=== PATIENT | female | born 1960 | race Caucasian/White ===

== ENCOUNTER → 2016-05-23 | Outpatient (CLI) | payer OTHER ==
--- NOTE | 2016-05-23 09:22 | US ---
EXAMINATION TYPE: US kidneys/renal and bladder DATE OF EXAM: 05/23/2016 8:53 AM COMPARISON: NONE CLINICAL HISTORY: R10.84 ABd Pain. left flank pain EXAM MEASUREMENTS: Right Kidney: 10.6 x 5.1 x 4.2 cm Left Kidney: 10.5 x 4.4 x 4.4 cm Findings: Right Kidney: wnl . Left Kidney: wnl Bladder: Poorly distended, wnl as visualized Bilateral Jets seen There is no evidence for hydronephrosis at this point in time. No nephrolithiasis is seen. No glen s are identified. The urinary bladder is anechoic. Bilateral ureteral jets are seen. IMPRESSION: No significant abnormality identified.
[2016-05-23 09:34] LABS: Appearance,Urine Clear (Clear); Bilirubin,Urine Negative (Negative); Glucose,Urine (UA) Negative (Negative); Ketones,Urine Negative (Negative); Leukocyte Esterase,Urine Negative (Negative); Nitrite,Urine Negative (Negative); Protein,Urine Negative (Negative); Specific Gravity,Urine 1.007 (1.001-1.035); UA Billing (MACRO vs. MICRO) CHEM; Urobilinogen,Urine <2.0 mg/dL (<2.0)
== END | disposition home or self-care (01) ==
LOC: RADUSMAIN 08:25
PROVIDERS: ATTEND Internal Medicine Critical Care Medicine
DX: R10.84 Generalized abdominal pain (principal)
CPT/HCPCS: 76770; 81003; 87086

== ENCOUNTER 2017-05-05 21:44 | Emergency (ER) | payer OTHER ==
[2017-05-05] MEDS ORDERED: KETOROLAC 30 MG/ML 1 ML VIAL IVP STA (21:55)
[2017-05-05 21:56] VITALS: RESP 18
[2017-05-05] MEDS ORDERED: ONDANSETRON 4 MG/2 ML VIAL IVP STA (22:05)
--- NOTE | 2017-05-05 22:23 | ED ---
Chest Pain HPI - General Chief Complaint: Chest Pain Stated Complaint: Chest Pain Time Seen by Provider: 05/05/17 21:47 Source: patient, family, RN notes reviewed Mode of arrival: wheelchair Limitations: no limitations - History of Present Illness Initial Comments: This is a 56-year-old female with no prior history of heart or lung disease who states that after playing tennis tonight she started developing anterior chest pain. Pain was sharp and dull midsternal she did have episodes nausea vomiting 2. No fevers chills or sweats. Of note she just returned from a trip from [place] yesterday. He voices no other complaints she states the pain is fairly severe at about 9/10. The pain does seem to get worse with certain movements and deep breathing. MD Complaint: chest pain - Related Data Home Medications Medication Instructions Recorded Confirmed Nadolol [Nadolol] 20 mg PO QAM 08/18/13 05/05/17 Naproxen Sodium [Aleve] 220 - 440 mg PO Q12HR PRN 08/18/13 05/05/17 hydrOXYzine PAMOATE [HydrOXYzine 50 mg PO DAILY 08/18/13 05/05/17 PAMOATE] Acai 3000mg 3,000 mg PO HS 05/05/17 05/05/17 Aspirin 325 mg PO ONCE PRN 05/05/17 05/05/17 Fluticasone Nasal [place] [Flonase 1 - 2 spray EA NOSTRIL DAILY PRN 05/05/1705/05 Nasal [place]] Nadolol [Corgard] 30 mg PO HS 05/05/17 05/05/17 Ranitidine HCl 150 mg PO DAILY 05/05/17 05/05/17 Previous Rx's Medication Instructions Recorded Ibuprofen 800 mg PO Q6HR PRN #20 tablet 05/06/17 traMADol HCL [Ultram] 50 mg PO Q6HR PRN #12 tab 05/06/17 Allergies Allergy/AdvReac Type Severity Reaction Status Date / Time No Known Allergies Allergy Verified 05/05/17 22:00 Review of Systems ROS Statement: Those systems with pertinent positive or pertinent negative responses have been documented in the HPI. ROS Other: All systems not noted in ROS Statement are negative. EKG Findings - EKG Results: EKG: interpreted by ERMD, WNL, sinus rhythm, normal axis, normal QRS, normal ST/ T, no acute changes (Normal sinus rhythm a 77 NJ interval 146 QRS duration of 90 QT since QTC of 394/[address]-T wave changes.) Past Medical History Past Medical History: Cancer, Respiratory Disorder, Seizure Disorder Additional Past Medical History / Comment(s): hx. 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 2 days ago History of Any Multi-Drug Resistant Organisms: None Reported Additional Past Surgical History / Comment(s): hx. removal fibroid uterine tumor , hx. carpal tunnel release rt hand, sinus surgery Additional Past Anesthesia/Blood Transfusion Reaction / Comment(s): slow to wake up from anesthesia Past Psychological History: No Psychological Hx Reported Smoking Status: Former smoker Past Alcohol Use History: Daily Past Drug Use History: None Reported - Past Family History Mother Additional Family Medical History / Comment(s): mother -heart, lung Father Family Medical History: Cancer Additional Family Medical History / Comment(s): colon General Exam - General Exam Comments Initial Comments: This is a well-developed well-nourished awake alert oriented 3 female Limitations: no limitations General appearance: alert, anxious, in distress Head exam: Present: atraumatic, normocephalic, normal inspection Eye exam: Present: normal appearance, PERRL, EOMI. Absent: scleral icterus, conjunctival injection, periorbital swelling ENT exam: Present: normal exam, mucous membranes moist Neck exam: Present: normal inspection. Absent: tenderness, meningismus, lymphadenopathy Respiratory exam: Present: normal lung sounds bilaterally, chest wall tenderness. Absent: respiratory distress, wheezes, rales, rhonchi, stridor Cardiovascular Exam: Present: regular rate, normal rhythm, normal heart sounds. Absent: systolic murmur, diastolic murmur, rubs, gallop, clicks GI/Abdominal exam: Present: soft, normal bowel sounds. Absent: distended, tenderness, guarding, rebound, rigid Extremities exam: Present: normal inspection, full ROM, normal capillary refill. Absent: tenderness, pedal edema, joint swelling, calf tenderness Back exam: Present: normal inspection Neurological exam: Present: alert, oriented X3, CN II-XII intact Psychiatric exam: Present: normal affect, normal mood Skin exam: Present: warm, dry, intact, normal color. Absent: rash Course Vital Signs 05/05/17 05/05/17 21:45 23:28 Temperature 97.2 F L Pulse Rate 85 75 Respiratory 18 18 Rate Blood Pressure 154/74 118/58 O2 Sat by Pulse 97 95 Oximetry Chest Pain MDM - MDM I did review the imaging and reports no acute findings. Patient is feeling improved his mentation is consistent with musculoskeletal chest pain additionally she does have elevated liver enzymes. Is likely secondary to alcohol consumption. A hepatitis profile will be ordered however. Patient will be discharged pain medication she was cautioned against alcohol and Tylenol use. She is a follow-up with her doctor and return when necessary Disposition Clinical Impression: Chest wall syndrome, Elevated liver enzymes, Costalchondritis Disposition: HOME SELF-CARE Condition: Good Instructions: Costochondritis (ED) Prescriptions: Ibuprofen 800 mg PO Q6HR PRN #20 tablet PRN Reason: Pain traMADol HCL [Ultram] 50 mg PO Q6HR PRN #12 tab PRN Reason: Pain Referrals: Giancarlo Townsend DO [Primary Care Provider] - 1-2 days
[2017-05-05 22:25] LABS: D-Dimer 0.66 mg/L FEU (<0.60)
[2017-05-05 22:29] LABS: INR 1.1 (<1.2); Prothrombin Time 10.6 sec (9.0-12.0)
[2017-05-05 22:31] LABS: ALT 129 U/L (9-52); AST 448 U/L (14-36); Albumin 4.4 g/dL (3.5-5.0); Alkaline Phosphatase 99 U/L (38-126); Amylase 49 U/L (30-110); Anion Gap 10 mmol/L; Blood Urea Nitrogen 14 mg/dL (7-17); Calcium 9.6 mg/dL (8.4-10.2); Carbon Dioxide 28 mmol/L (22-30); Chloride 105 mmol/L (98-107); Glucose 115 mg/dL (74-99); Lipase 160 U/L (23-300); Magnesium 1.7 mg/dL (1.6-2.3); Potassium 4.1 mmol/L (3.5-5.1); Sodium 143 mmol/L (137-145); Total Bilirubin 0.5 mg/dL (0.2-1.3); Total Protein 6.8 g/dL (6.3-8.2)
[2017-05-05 22:40] LABS: Creatine Kinase 61 U/L (30-135)
--- NOTE | 2017-05-05 22:47 | XR ---
EXAMINATION TYPE: XR chest 2V DATE OF EXAM: 05/05/2017 COMPARISON: NONE HISTORY: Chest pain TECHNIQUE: Frontal and lateral views of the chest are obtained. FINDINGS: Heart and mediastinum are normal. Lungs are clear. Diaphragm is normal. Bony thorax appear s normal. IMPRESSION: Chest x-ray appears normal for age.
[2017-05-05 22:48] LABS: Partial Thromboplastin Time 20.6 sec (22.0-30.0)
[2017-05-05 22:53] LABS: Creatine Kinase MB 0.6 ng/mL (0.0-2.4); Troponin I <0.012 ng/mL (0.000-0.034)
[2017-05-05 23:05] LABS: Basophils % (A) 0 %; Eosinophils # (A) 0.1 k/uL (0-0.7); Eosinophils % (A) 1 %; HGB 13.7 gm/dL (11.4-16.0); Lymphocytes # (A) 0.3 k/uL (1.0-4.8); Lymphocytes % (A) 5 %; MCH 32.9 pg (25.0-35.0); MCHC 33.4 g/dL (31.0-37.0); MCV 98.6 fL (80.0-100.0); Mean Platelet Volume 6.8; Monocytes # (A) 0.1 k/uL (0-1.0); Monocytes % (A) 2 %; Neutrophils # (A) 4.7 k/uL (1.3-7.7); Neutrophils % (A) 92 %; Platelet Count 209 k/uL (150-450); RBC 4.16 m/uL (3.80-5.40); RDW 13.3 % (11.5-15.5); WBC 5.2 k/uL (3.8-10.6)
[2017-05-05] MEDS ORDERED: HYDROmorphone 2 MG/ML 1 ML SYRINGE IVP STA (23:08)
[2017-05-05] MEDS ORDERED: RX INFO: IV CONTRAST WAS GIVEN 1 EACH MISC MISCELLANE PRN (23:08)
--- NOTE | 2017-05-05 23:40 | CT ---
EXAMINATION TYPE: CT angio chest DATE OF EXAM: 05/05/2017 11:28 PM COMPARISON: NONE HISTORY: Chest pain. Elevated d-dimer. CT DLP: 135.70 mGycm Automated exposure control for dose reduction was used. CONTRAST: CTA scan of the thorax is performed with IV Contrast, patient injected with 60 mL of Omnipaque 350, p ulmonary embolism protocol. R 3-D post processed images.. FINDINGS: Lungs are clear of infiltrate. There is no pleural effusion. There is no evidence of a pulmonary mass . There is no mediastinal adenopathy. There are no hilar masses. Thoracic aorta appears normal. There is normal contrast opacification of the pulmonary arteries. There are no filling defects. The thorac ic spine is intact. IMPRESSION: NORMAL CT ANGIOGRAM OF THE CHEST. NO EVIDENCE OF PULMONARY EMBOLISM.
[2017-05-06 00:12] VITALS: BP 101/56; PULSE 68; TEMP 99
[2017-05-06 12:03] LABS: Hepatitis A Antibody IgM Non-Reactive (Non-Reactive); Hepatitis B Core IgM Non-Reactive (Non-Reactive)
== END 2017-05-06 00:17 | disposition home or self-care (01) ==
LOC: EC 21:44
DX: M94.0 Chondrocostal junction syndrome [Tietze] (principal); R74.8 Abnormal levels of other serum enzymes; Z87.891 Personal history of nicotine dependence; Z79.899 Other long term (current) drug therapy
CPT/HCPCS: 36415; 93005; 85379; 80053; 80074; 82150; 82550; 82553; 83690; 83735; 84484; 85025; 85610; 85730; 71046; 71275; 99285; 96374; 96375 ×2; J1170; Q9967; J2405; J1885

== ENCOUNTER → 2017-05-08 | Outpatient (CLI) | payer OTHER ==
--- NOTE | 2017-05-08 14:27 | CT ---
EXAMINATION TYPE: CT abdomen pelvis w con DATE OF EXAM: 05/08/2017 COMPARISON: NONE INDICATION: Upper abdominal pain DLP: 399.1 mGycm, Automated exposure control for dose reduction was used. CONTRAST: 100 mL of Omnipaque 300. Study performed with Oral Contrast TECHNIQUE: Axial images were obtained from above the diaphragm to the pubic rami in the axial plane a t 5 mm thick sections. Reconstructed images are reviewed on the computer in the coronal plane. FINDINGS: Limited CT sections are obtained the lung bases. The lung bases are clear. CT ABDOMEN: Liver: Normal Spleen: Normal Pancreas: Normal Adrenal glands: The adrenal glands are normal. Gallbladder: Normal Kidneys: No masses are evident. No hydronephrosis is present. No cysts are present. Delayed images were obtained through the kidneys, which remain unremarkable. Aorta: Vascular calcification is within the aorta. Inferior vena cava: Normal. CT PELVIS: Loops of bowel within the abdomen and pelvis are normal. There are loops of bowel which are incom pletely distended or lack oral contrast limiting their evaluation. Appendix: Normal as visualized. Urinary bladder: Normal. Genitourinary structures: Uterus appears normal. The right ovary is prominent in the posterior pelvis measuring approximately 2.9 cm. Left adnexal region is unremarkable. No free fluid is within the pel vis. Additional evaluation with pelvic ultrasound is recommended. Osseous structures: No suspicious lytic or sclerotic lesions. IMPRESSIONS: 1. Suspected complex cyst like structure right ovary posterior pelvis. Additional evaluation with pe lvic ultrasound is recommended. 2. Abdomen pelvis CT otherwise unremarkable.
[2017-05-08 14:39] LABS: ALT 184 U/L (9-52); AST 92 U/L (14-36); Albumin 3.9 g/dL (3.5-5.0); Alkaline Phosphatase 94 U/L (38-126); Anion Gap 8 mmol/L; Blood Urea Nitrogen 14 mg/dL (7-17); Calcium 9.4 mg/dL (8.4-10.2); Carbon Dioxide 29 mmol/L (22-30); Chloride 100 mmol/L (98-107); Glucose 84 mg/dL (74-99); Sodium 137 mmol/L (137-145); Total Bilirubin 0.4 mg/dL (0.2-1.3); Total Protein 6.4 g/dL (6.3-8.2)
== END | disposition home or self-care (01) ==
LOC: RADCTMAIN 12:13
PROVIDERS: ATTEND Internal Medicine Critical Care Medicine
DX: R10.9 Unspecified abdominal pain (principal)
CPT/HCPCS: 80053; 74177; 36415; Q9967

== ENCOUNTER → 2017-05-12 | Outpatient (CLI) | payer OTHER ==
--- NOTE | 2017-05-13 07:55 | US ---
EXAMINATION TYPE: US pelvis complete transvag DATE OF EXAM: 05/12/2017 COMPARISON: CT abdomen and pelvis May 08, 2017 CLINICAL HISTORY: Abdominal Pain R10.9. Abdominal pain. Ovarian cyst visualized on recent CT exam TECHNIQUE: Transvaginal (TV) and Transabdominal (TA) . Transabdominal sonographic images of the pel vis were acquired. Transvaginal sonographic images were medically necessary to better assess the fol lowing anatomy: bilateral ovaries Date of LMP: December 2016 EXAM MEASUREMENTS: Uterus: 9.5 x 4.8 x 5.4 cm Endometrial Stripe: 0.6 cm Right Ovary: 4.2 x 3.4 x 3.2 cm Left Ovary: unable to visualize 1. Uterus: Anteverted heterogeneous in appearance with Nabothian cysts 2. Endometrium: possible fibroid fundus of uterus vs. slightly heterogeneous, thickened endometrium = 1.2cm 3. Right Ovary: complex area = 3.2 x 3.2 x 2.1cm 4. Left Ovary: Obscured by overlying bowel gas 5. Bilateral Adnexa: anechoic area adjacent to right ovary = 2.5 x 2.6 x 2.4cm. small amount of free fluid right adnexa 6. Posterior cul-de-sac: Free fluid present Corresponding to recent CT there is asymmetrically enlarged right ovary with several cystic lesions i dentified. Majority are lobulated and predominantly anechoic. One has internal echoes. Other possibil ity is large solid and cystic single right ovarian lesion. Either way study is abnormal in postmenopa usal female. Left ovary is not clearly seen on today's study. Left ovary was normal in size on recent CT. Towards end of study there is heterogeneous hyperechoic lesion in the central uterine fundus milton ears to connect to endometrium on image 73. Cannot exclude focal thickening or polyp. Consider furthe r investigation. IMPRESSION: Abnormal study, there are several cystic lesions measuring greater than 1 cm in size in r ight ovary or a more complex solid and cystic right ovarian mass, either way study is abnormal for po stmenopausal female and neoplasm cannot be excluded. Advise gynecology oncology referral and further lab investigation. There is small amount of free fluid in pelvis which is abnormal finding in postmen opausal female. High uterine fundus shows hyperechoic thickening could reflect submucosal fibroid kori moses polyp/endometrial hyperplasia. This could be further investigated with saline infused hysterosono graph study to better delineate.
== END | disposition home or self-care (01) ==
LOC: RADUSWWP 16:11
PROVIDERS: ATTEND Internal Medicine Critical Care Medicine
DX: N83.201 Unspecified ovarian cyst, right side (principal); R93.8 Abnormal findings on diagnostic imaging of other specified body structures; Z78.0 Asymptomatic menopausal state
CPT/HCPCS: 76830; 76856

== ENCOUNTER → 2018-03-02 | Outpatient (CLI) | payer OTHER ==
[2018-03-02 15:00] LABS: Basophils % (A) 0 %; Eosinophils # (A) 0.2 k/uL (0-0.7); Eosinophils % (A) 2 %; Lymphocytes # (A) 1.2 k/uL (1.0-4.8); Lymphocytes % (A) 18 %; MCH 33.7 pg (25.0-35.0); MCHC 33.4 g/dL (31.0-37.0); MCV 100.9 fL (80.0-100.0); Mean Platelet Volume 6.8; Monocytes # (A) 0.4 k/uL (0-1.0); Monocytes % (A) 7 %; Neutrophils # (A) 4.6 k/uL (1.3-7.7); Neutrophils % (A) 69 %; Platelet Count 333 k/uL (150-450); RBC 3.87 m/uL (3.80-5.40); RDW 12.9 % (11.5-15.5); WBC 6.6 k/uL (3.8-10.6)
[2018-03-02 15:16] LABS: ALT 32 U/L (9-52); AST 30 U/L (14-36); Albumin 4.5 g/dL (3.5-5.0); Albumin/Globulin Ratio 1.7; Alkaline Phosphatase 67 U/L (38-126); Amylase 50 U/L (30-110); Anion Gap 8 mmol/L; Blood Urea Nitrogen 17 mg/dL (7-17); Calcium 10.3 mg/dL (8.4-10.2); Carbon Dioxide 29 mmol/L (22-30); Chloride 103 mmol/L (98-107); Globulin 2.7 g/dL; Glucose 95 mg/dL (74-99); Lipase 183 U/L (23-300); Potassium 4.9 mmol/L (3.5-5.1); Sodium 140 mmol/L (137-145); Total Bilirubin 0.4 mg/dL (0.2-1.3); Total Protein 7.2 g/dL (6.3-8.2)
[2018-03-02 15:50] LABS: Erythrocyte Sedimentation Rate 7 mm/hr (0-20)
== END | disposition home or self-care (01) ==
LOC: LABWHC1 14:15
PROVIDERS: ATTEND Internal Medicine Critical Care Medicine
DX: R11.10 Vomiting, unspecified (principal); R25.2 Cramp and spasm; Z85.43 Personal history of malignant neoplasm of ovary
CPT/HCPCS: 36415; 80053; 82150; 83690; 84443; 85025; 85652; 86677

== ENCOUNTER → 2018-03-29 | Outpatient (CLI) | payer OTHER ==
[2018-03-29 14:26] LABS: Basophils % (A) 0 %; Eosinophils # (A) 0.2 k/uL (0-0.7); Eosinophils % (A) 3 %; HCT 37.6 % (34.0-46.0); HGB 12.9 gm/dL (11.4-16.0); Lymphocytes # (A) 1.3 k/uL (1.0-4.8); Lymphocytes % (A) 19 %; MCH 34.3 pg (25.0-35.0); MCHC 34.2 g/dL (31.0-37.0); MCV 100.2 fL (80.0-100.0); Monocytes # (A) 0.4 k/uL (0-1.0); Monocytes % (A) 6 %; Neutrophils % (A) 71 %; Platelet Count 286 k/uL (150-450); RBC 3.75 m/uL (3.80-5.40); RDW 12.8 % (11.5-15.5)
== END | disposition home or self-care (01) ==
LOC: LABWHC1 13:47
PROVIDERS: ATTEND Obstetrics & Gynecology
DX: C54.1 Malignant neoplasm of endometrium (principal); C56.9 Malignant neoplasm of unspecified ovary
CPT/HCPCS: 36415; 85025; 86304

== ENCOUNTER → 2018-07-12 | Outpatient (CLI) | payer OTHER ==
--- NOTE | 2018-07-13 10:15 | MM ---
Reason for exam: screening (asymptomatic). Last mammogram was performed 1 year and 2 months ago. History: Patient is postmenopausal and has history of ovarian cancer at age 56. Family history of breast cancer in grandmother at age 50 and breast cancer in aunt at age 78. Benign excisional biopsy of the left breast, 2013. Physical Findings: A clinical breast exam by your physician is recommended on an annual basis and results should be correlated with mammographic findings. MG 3D Screening Mammo W/Cad Bilateral CC and MLO view(s) were taken. Prior study comparison: May 12, 2017, mammogram, performed at [facility]. The breast tissue is heterogeneously dense. This may lower the sensitivity of mammography. There is chronic nodularity. No significant changes when compared with prior studies. ASSESSMENT: Benign, BI-RAD 2 RECOMMENDATION: Routine screening mammogram of both breasts in 1 year.
== END | disposition home or self-care (01) ==
LOC: RADMAMWWP 09:13
PROVIDERS: ATTEND Internal Medicine Critical Care Medicine
DX: Z12.31 Encounter for screening mammogram for malignant neoplasm of breast (principal)
CPT/HCPCS: 77063; 77067

== ENCOUNTER 2018-07-28 09:16 | Day surgery (SDC) | payer OTHER ==
[2018-07-27 08:15] VITALS: BMI 22.3
[~2018-07-28 09:16] MED LIST: LACTATED RINGERS 1,000 ML IV SCH; LIDOCAINE 1% 20 ML VIAL (10MG/ML) FOR IV START INTRADERMA PRN
[2018-07-28 10:15] VITALS: RESP 16; TEMP 98.3
[2018-07-28] MEDS ORDERED: PROPOFOL 10 MG/ML 20 ML VIAL IV ONE (10:50)
--- NOTE | 2018-07-28 11:13 | P.PCN ---
Date of Procedure: 07/28/18 Procedure(s) Performed: BRIEF HISTORY: Patient is a 58-year-old pleasant white female scheduled for an elective colonoscopy as a part of screening for colon neoplasia. She does have family history of colon cancer diagnosed in her father. PROCEDURE PERFORMED: Colonoscopy. PREOPERATIVE DIAGNOSIS: Screening for colon cancer/family history of colon cancer. IV sedation per Anesthesia. PROCEDURE: After informed consent was obtained, the patient, was brought into the endoscopy unit. IV sedation was administered by Anesthesia under continuous monitoring. Digital rectal examination was normal. Initially the Olympus CF-160 flexible video colonoscope was then inserted in the rectum, gradually advanced into the cecum without any difficulty. Careful examination was performed as the scope was gradually being withdrawn. Ileocecal valve and the appendiceal orifice were visualized and appeared normal. Prep was excellent. Mucosa of the cecum, ascending colon, transverse colon, descending colon, sigmoid colon, and rectum appeared normal. Scattered sigmoid diverticulosis. Retroflexion was performed in the rectum and no lesions were seen. The patient tolerated the procedure well. IMPRESSION: Normal-appearing colon from rectum to cecum with no evidence of colorectal neoplasia Scattered sigmoid diverticulosis. RECOMMENDATIONS: Findings of this examination were discussed with the patient as well as her family. She was advised to have a repeat screening colonoscopy in 5 years because of family history of colon cancer..
[2018-07-28 11:31] VITALS: BP 119/79; PULSE 61
== END 2018-07-28 11:49 | disposition home or self-care (01) ==
LOC: ORWHC2ENDO 09:16
PROVIDERS: ATTEND Internal Medicine Gastroenterology
DX: Z12.11 Encounter for screening for malignant neoplasm of colon (principal); Z80.0 Family history of malignant neoplasm of digestive organs; K57.30 Diverticulosis of large intestine without perforation or abscess without bleeding; Z88.8 Allergy status to other drugs, medicaments and biological substances; K21.9 Gastro-esophageal reflux disease without esophagitis; Z85.43 Personal history of malignant neoplasm of ovary; G62.9 Polyneuropathy, unspecified
CPT/HCPCS: J2704; G0105

== ENCOUNTER → 2018-11-01 | Outpatient (CLI) | payer OTHER ==
--- NOTE | 2018-11-03 07:55 | MR ---
EXAMINATION TYPE: MR cervical spine wo/w con DATE OF EXAM: 11/01/2018 COMPARISON: Prior MRI cervical spine 04/05/2014, facility from prior exam did not furnish previous rep ort. HISTORY: Cervicalgia / Headache / Myalgia TECHNIQUE: Multiplanar, multisequence images of the cervical spine were acquired utilizing 5.5 mL intravenous Ga davist gadolinium contrast. Diffusion weighted imaging was performed. C2-C3: No evidence for degenerative disc disease. No disc bulge/herniation or protrusion. No Canal stenosis. Foramina are patent bilaterally. C3-C4: Uncovertebral joint hypertrophy and facet arthropathy results in foraminal encroachment bilate rally. No evident disc herniation or significant central stenosis. C4-C5: Mild right-sided foraminal encroachment. No definite disc herniation or significant central st enosis. C5-C6: There is a posterior central disc herniation which has developed in the interval. There is con tact with the anterior cervical cord, mild to moderate central stenosis. No definite foraminal encroa chment. C6-C7: Posterior broad-based disc bulge causes anterior aspect of the thecal sac but only mild centra l stenosis. There is bilateral foraminal encroachment. C7-T1: Mild posterior broad-based disc bulge causes minimal anterior mass effect on the thecal sac. N o significant central stenosis or foraminal encroachment. Cervical segments are intact. There is similar alignment, grade 1 anterolisthesis C3-4, C4-5, C5-6. Loss of disc height and signal is greatest and has progressed at C5-6 and C6-7, there is associated spondylosis. Cervical spinal cord is of normal signal. Craniovertebral junction relationships are wi thin normal limits. There is a spinal curvature present possibly within the thoracic spine, compensa tory curve in the cervical spine. No abnormal enhancement following contrast administration. IMPRESSION: Interval disc herniation C5-6, multilevel foraminal encroachment. Degenerative disc disease. Correlat e for possible scoliosis.
== END | disposition home or self-care (01) ==
LOC: RADMRIMAIN 12:40
PROVIDERS: ATTEND Orthopaedic Surgery Orthopaedic Surgery of the Spine
DX: M48.02 Spinal stenosis, cervical region (principal); M50.122 Cervical disc disorder at C5-C6 level with radiculopathy; M50.10 Cervical disc disorder with radiculopathy, unspecified cervical region
CPT/HCPCS: 72156; A9585

== ENCOUNTER 2018-12-17 11:00 | Day surgery (SDC) | payer OTHER ==
[2018-12-15 15:43] VITALS: BMI 21.9
[~2018-12-17 11:00] MED LIST changes: +DEXAMETHASONE SOD PHOSPHATE 10 MG/ML 1 ML VIAL IV ONE; +HYDROmorphone 0.5 MG/0.5 ML SYRINGE IVP PRN; -LIDOCAINE 1% 20 ML VIAL (10MG/ML) FOR IV START INTRADERMA PRN; +MIDAZOLAM 2 MG/2 ML VIAL IV PRN; +ONDANSETRON 4 MG/2 ML VIAL IVP ONE; +Pre Op ABX Message 1 EACH MISC MISCELLANE ONE; +SCOPOLAMINE 1.5MG/72HR PATCH TRANSDERM ONE
[2018-12-17 11:42] VITALS: TEMP 98
[2018-12-17] MEDS ORDERED: LIDOCAINE 1% 20 ML VIAL (10MG/ML) FOR IV START INTRADERMA ONE (11:42)
[2018-12-17] MEDS ORDERED: PROPOFOL 10 MG/ML 20 ML VIAL IV ONE (12:39)
[2018-12-17] MEDS ORDERED: ePHEDrine SULFATE/0.9% NACL/PF 50 MG/5 ML SYRINGE IV ONE (12:39)
[2018-12-17] MEDS ORDERED: fentaNYL (PF) 50 MCG/ML 2 ML AMP ONE (12:39)
[2018-12-17] MEDS ORDERED: MIDAZOLAM 2 MG/2 ML VIAL ONE (12:39)
[2018-12-17] MEDS ORDERED: LIDOCAINE 1%-EPI 1:100,000 30 ML VIAL SQ ONE (12:55)
[2018-12-17] MEDS ORDERED: BUPIVACAINE (PF) 0.5% 30 ML VIAL SQ ONE ×3 (13:06→13:39)
[2018-12-17 14:03] VITALS: RESP 16
--- NOTE | 2018-12-17 14:20 | P.OP ---
Date of Procedure: 12/17/18 Preoperative Diagnosis: 1. Left carpal tunnel syndrome 2. Left ring trigger finger Postoperative Diagnosis: 1. Left carpal tunnel syndrome 2. Left ring trigger finger Procedure(s) Performed: 1. Left endoscopic carpal tunnel release 2. Release of left ring trigger finger Anesthesia: MAC, local Surgeon: Rodriguez Ramos Estimated Blood Loss (ml): 1 Condition: stable Disposition: PACU Indications for Procedure: The patient is a pleasant 58-year-old female who was diagnosed with left carpal tunnel syndrome and a trigger finger of her left ring finger. Treatment options (and associated risks and benefits) were discussed in the office. The patient elected to proceed with surgical release of both. In preop, the patient denied any additional questions or concerns. Consent forms were signed. The operative sites were confirmed and marked. Description of Procedure: The patient was positioned supine with the operative limb on an arm board. A tourniquet was placed on the operative arm. Anesthesia was administered uneventfully. A time-out was performed, confirming patient identifiers, the operative side, sites and the procedures to be performed: all team members expressed agreement. Using aseptic technique, local anesthetic was injected into the subcutaneous tissues around the planned incisions. The left upper extremity was then prepped and draped in standard, sterile fashion. The limb was exsanguinated with an Esmarch and the tourniquet was inflated. The ring finger was approached first. Loupe magnification was used throughout the case for optimum visualization. A longitudinal incision was marked over the A1 sandy. The skin was sharply incised and blunt, spreading dissection proceeded down to the flexor sheath, taking care to protect the adjacent neurovascular bundles. The subcutaneous tissue was noted to be moderately dense and thickened. The A1 sandy was identified and was sharply incised longitudinally. The FDS and FDP tendons were elevated out of the wound with Ragnell retractors: a subtle, palpable release of adhesions was noted in the palm and full passive flexion of the ring finger was achieved. The tendons were released and allowed to retract back to their normal anatomic positions. Passive motion of the digit demonstrated smooth tendon gliding without appreciable catching, triggering or focal restriction. Attention was then turned to the carpal tunnel. A 1.5 cm transverse incision was marked just proximal to the wrist flexion crease, in line with the radial border of the ring finger. The skin was sharply incised and the subcutaneous tissues were bluntly spread. The volar carpal fascia was identified and sharply incised. The median nerve was identified below and had a flattened, dusky appearance consistent with chronic compression. Attempts to insert a smooth elevator were met with resistance and traction against the nerve. The volar carpal fascia was further released distally under direct visualization. A Geneva elevator was used to gently release adhesions over the nerve. The synovial elevator was again inserted and passed smoothly into the carpal tunnel without traction or tension on the nerve. This was used to gently release remaining adhesions on the underside of the transverse carpal ligament. The washboard effect was palpable. A dilator was inserted to sound and enlarge the carpal tunnel. The hamate hook was palpable ulnarly. The carpal tunnel was very tight and the small side-specific guide and camera were inserted. The transverse carpal ligament was clearly visualized above. The distal edge of the ligament was identified and palpated with a probe. A rasp was used to clear the remaining synovial adhesions. The endoscopic blade was inserted and the distal half of the ligament was sharply incised. Residual distal transverse fibers were released and then the proximal portion of the ligament was divided. Wide release of ligament was visually confirmed. The camera was removed. The volar carpal fascia proximal and distal to the incision was released with scissors under direct visualization. The nerve had a flattened, hourglass appearance at the level of the incision with thick perineural adhesions causing persistent compression on the nerve. A limited neurolysis was performed, which improved the appearance and mobility of the nerve. The tourniquet was released after 33 minutes at 250 mmHg. Excellent hemostasis was obtained with pressure. The wounds were thoroughly irrigated with normal saline. The incisions were closed with interrupted 4-0 Nylon sutures. Additional local anesthetic with epinephrine was injected for adjunctive hemostasis and postoperative pain control. A soft, sterile dressing was applied. All sponge, needle and instrument counts were correct at the end of the case. The patient tolerated the procedure well and was transferred to recovery in stable condition.
[2018-12-17 14:48] VITALS: PULSE 51
[2018-12-17 15:09] VITALS: BP 133/61
== END 2018-12-17 15:30 | disposition home or self-care (01) ==
LOC: OR 11:00
PROVIDERS: ATTEND Orthopaedic Surgery
DX: G56.02 Carpal tunnel syndrome, left upper limb (principal); M65.342 Trigger finger, left ring finger; M65.341 Trigger finger, right ring finger; G43.909 Migraine, unspecified, not intractable, without status migrainosus; G40.909 Epilepsy, unspecified, not intractable, without status epilepticus; G62.9 Polyneuropathy, unspecified; Z79.1 Long term (current) use of non-steroidal anti-inflammatories (NSAID); Z79.899 Other long term (current) drug therapy; Z97.3 Presence of spectacles and contact lenses; Z85.43 Personal history of malignant neoplasm of ovary; Z90.710 Acquired absence of both cervix and uterus; Z79.82 Long term (current) use of aspirin; Z90.722 Acquired absence of ovaries, bilateral; Z90.79 Acquired absence of other genital organ(s); Z98.890 Other specified postprocedural states; Z82.49 Family history of ischemic heart disease and other diseases of the circulatory system
CPT/HCPCS: 26055; 29848; 93005; J2250; J1100; J2405; J3010; J2704

== ENCOUNTER → 2020-06-04 | Outpatient (CLI) | payer OTHER ==
[2020-06-04 14:57] LABS: Basophils # (A) 0.03 X 10*3/uL (0.00-0.10); Basophils % (A) 0.5 %; Eosinophils # (A) 0.18 X 10*3/uL (0.04-0.35); Eosinophils % (A) 2.8 %; HCT 37.7 % (37.2-46.3); HGB 12.5 g/dL (12.0-15.0); Lymphocytes # (A) 1.38 X 10*3/uL (0.90-5.00); Lymphocytes % (A) 21.3 %; MCH 33.3 pg (27.0-32.0); MCHC 33.2 g/dL (32.0-37.0); MCV 100.5 fL (80.0-97.0); Mean Platelet Volume 10.1 fL (9.5-12.2); Monocytes # (A) 0.65 X 10*3/uL (0.20-1.00); Neutrophils # (A) 4.22 X 10*3/uL (1.80-7.70); Neutrophils % (A) 65.2 %; Platelet Count 284 X 10*3/uL (140-440); RBC 3.75 X 10*6/uL (4.10-5.20); RDW 12.6 % (11.5-14.5); WBC 6.47 X 10*3/uL (4.50-10.00)
[2020-06-04 15:37] LABS: ALT 13 U/L (8-44); AST 21 U/L (13-35); African American GFR (CKD) 109.1 (60.0-200.0); Alkaline Phosphatase 70 U/L (41-126); BUN/Creat Ratio 24.29 Ratio (12.00-20.00); Calcium 9.6 mg/dL (8.7-10.3); Carbon Dioxide 28.3 mmol/L (21.6-31.8); Chloride 106 mmol/L (96-109); Chol/HDL Ratio 2.27; Cholesterol 188 mg/dL (0-200); Glucose 93 mg/dL (70-110); Non-African American GFR(CKD) 94.2 (60.0-200.0); Potassium 4.5 mmol/L (3.5-5.5); Sodium 141 mmol/L (135-145); Total Bilirubin 0.4 mg/dL (0.2-1.2); Total Protein 6.4 g/dL (6.2-8.2); Triglycerides <50.0 mg/dL (0.0-149.0)
== END | disposition home or self-care (01) ==
LOC: LABWHC1 09:02
PROVIDERS: ATTEND Internal Medicine Critical Care Medicine
DX: Z00.00 Encounter for general adult medical examination without abnormal findings (principal); D07.39 Carcinoma in situ of other female genital organs; J32.9 Chronic sinusitis, unspecified; G43.909 Migraine, unspecified, not intractable, without status migrainosus; N83.299 Other ovarian cyst, unspecified side; G47.00 Insomnia, unspecified
CPT/HCPCS: 36415; 80053; 80061; 82306; 83036; 84439; 84443; 85025

== ENCOUNTER → 2020-08-01 | Outpatient (CLI) | payer OTHER ==
--- NOTE | 2020-08-02 13:47 | MM ---
Reason for exam: screening (asymptomatic). Last mammogram was performed 2 years and 1 month ago. History: Patient is postmenopausal and has history of ovarian cancer at age 56. Family history of breast cancer in grandmother at age 50 and breast cancer in aunt at age 78. Benign excisional biopsy of the left breast, 2013. Physical Findings: A clinical breast exam by your physician is recommended on an annual basis and results should be correlated with mammographic findings. MG 3D Screening Mammo W/Cad Bilateral CC and MLO view(s) were taken. Prior study comparison: July 12, 2018, bilateral MG 3d screening mammo w/cad. May 12, 2017, mammogram, performed at [facility]. The breast tissue is extremely dense which could obscure a lesion on mammography. Benign appearing bilateral calcifications. No significant changes when compared with prior studies. ASSESSMENT: Benign, BI-RAD 2 RECOMMENDATION: Routine screening mammogram of both breasts in 1 year.
== END | disposition home or self-care (01) ==
LOC: RADMAMWWP 16:02
PROVIDERS: ATTEND Obstetrics & Gynecology
DX: Z12.31 Encounter for screening mammogram for malignant neoplasm of breast (principal); Z78.0 Asymptomatic menopausal state; Z80.3 Family history of malignant neoplasm of breast
CPT/HCPCS: 77063; 77067

== ENCOUNTER → 2021-09-26 | Outpatient (CLI) | payer OTHER ==
--- NOTE | 2021-09-27 09:45 | MM ---
Reason for Exam: Screening (asymptomatic). Last mammogram was performed 1 year(s) and 2 month(s) ago. Patient History: Menarche at age 10. First Full-Term at age 26. Left ovary removed at age 57. Right ovary removed at age 57. Hysterectomy at age 57. Postmenopausal. Ovarian cancer, age 57. Previous chemotherapy at age 57. 2013, Benign Excisional Biopsy on the left side. Maternal grandmother had breast cancer, age 50. Maternal aunt had breast cancer, age 78. Risk Values: Shirin 5 year model risk: 2.2%. NCI Lifetime model risk: 9.8%. Prior Study Comparison: 05/12/2017 Screening Mammogram, [facility]. 07/12/2018 Bilateral Screening Mammogram, [facility]. 08/01/2020 Bilateral Screening Mammogram, [facility]. Tissue Density: The breast tissue is extremely dense which could obscure a lesion on mammography. Findings: Analyzed By CAD. There is no suspicious group of microcalcifications or new suspicious mass in either breast. Overall Assessment: Negative, BI-RAD 1 Management: Screening Mammogram of both breasts in 1 year. Some advised bilateral breast ultrasound surveillance in patients with background dense tissue . Electronically signed and approved by: Norberto Aleman M.D.
== END | disposition home or self-care (01) ==
LOC: RADMAMWWP 10:09
PROVIDERS: ATTEND Internal Medicine Critical Care Medicine
DX: Z12.31 Encounter for screening mammogram for malignant neoplasm of breast (principal); Z78.0 Asymptomatic menopausal state; Z80.3 Family history of malignant neoplasm of breast
CPT/HCPCS: 77063; 77067

== ENCOUNTER → 2021-09-30 | Outpatient (CLI) | payer OTHER ==
--- NOTE | 2021-09-30 11:16 | XR ---
EXAMINATION TYPE: XR chest 2V DATE OF EXAM: 09/30/2021 COMPARISON: Chest x-ray and CT chest May 05, 2017. Most recent chest x-ray September 24, 2021 HISTORY: Breast lump. Possible nipple shadow. TECHNIQUE: Frontal and lateral views of the chest are obtained. FINDINGS: Nipple markers correspond to area of nodularity on most recent x-ray less well seen on curr ent study There is no suspicious new focal air space opacity, pleural effusion, or pneumothorax seen. The cardiac silhouette size remains within normal limits. Slight underlying scoliotic curvature. IMPRESSION: As above.
== END | disposition home or self-care (01) ==
LOC: RADXRMAIN 10:22
PROVIDERS: ATTEND Internal Medicine Critical Care Medicine
DX: N63.0 Unspecified lump in unspecified breast (principal)
CPT/HCPCS: 71046

== ENCOUNTER → 2022-07-14 | Outpatient (CLI) | payer OTHER ==
[2022-07-15 02:13] LABS: Basophils # (A) 0.03 X 10*3/uL (0.00-0.10); Basophils % (A) 0.4 %; Eosinophils # (A) 0.12 X 10*3/uL (0.04-0.35); Eosinophils % (A) 1.7 %; HCT 41.8 % (37.2-46.3); HGB 13.8 g/dL (12.0-15.0); Immature Grans, Automated 0.3 %; Lymphocytes # (A) 1.58 X 10*3/uL (0.90-5.00); Lymphocytes % (A) 22.9 %; MCH 34.4 pg (27.0-32.0); MCV 104.2 fL (80.0-97.0); Mean Platelet Volume 9.6 fL (9.5-12.2); Monocytes # (A) 0.71 X 10*3/uL (0.20-1.00); Monocytes % (A) 10.3 %; NRBC Per 100 WBC 0 /100 WBCS (0.0-0.0); Neutrophils # (A) 4.44 X 10*3/uL (1.80-7.70); Neutrophils % (A) 64.4 %; Platelet Count 378 X 10*3/uL (140-440); RBC 4.01 X 10*6/uL (4.10-5.20); RDW 12.7 % (11.5-14.5)
[2022-07-15 02:36] LABS: ALT 16 U/L (8-44); AST 19 U/L (13-35); African American GFR (CKD) 100.6 (60.0-200.0); Albumin 4.8 g/dL (3.8-4.9); Alkaline Phosphatase 74 U/L (41-126); BUN/Creat Ratio 19.32 Ratio (12.00-20.00); Blood Urea Nitrogen 14.3 mg/dL (9.0-27.0); Calcium 10.4 mg/dL (8.7-10.3); Carbon Dioxide 31.6 mmol/L (20.0-27.5); Chloride 99 mmol/L (96-109); Chol/HDL Ratio 2.45 Ratio; Globulin 2.3 g/dL (1.6-3.3); Glucose 126 mg/dL (70-110); LDL Cholesterol,Calculated 104.8 mg/dL (0.0-131.0); Non-African American GFR(CKD) 86.8 (60.0-200.0); Potassium 4.4 mmol/L (3.5-5.5); Sodium 141 mmol/L (135-145); Total Protein 7.1 g/dL (6.2-8.2)
== END | disposition home or self-care (01) ==
LOC: LABWHC1 13:42
PROVIDERS: ATTEND Internal Medicine Critical Care Medicine
DX: Z00.00 Encounter for general adult medical examination without abnormal findings (principal); I10 Essential (primary) hypertension; G47.00 Insomnia, unspecified; G43.909 Migraine, unspecified, not intractable, without status migrainosus; G62.9 Polyneuropathy, unspecified; D07.39 Carcinoma in situ of other female genital organs
CPT/HCPCS: 36415; 80053; 80061; 82306; 83036; 84439; 84443; 85025

== ENCOUNTER 2023-01-09 08:06 | Day surgery (SDC) | payer OTHER ==
[2023-01-06 14:53] VITALS: BMI 21.7
[~2023-01-09 08:06] MED LIST changes: -DEXAMETHASONE SOD PHOSPHATE 10 MG/ML 1 ML VIAL IV ONE; -HYDROmorphone 0.5 MG/0.5 ML SYRINGE IVP PRN; +LIDOCAINE 1% (10MG/ML) FOR IV START INTRADERMA PRN; -MIDAZOLAM 2 MG/2 ML VIAL IV PRN; -ONDANSETRON 4 MG/2 ML VIAL IVP ONE; -Pre Op ABX Message 1 EACH MISC MISCELLANE ONE; -SCOPOLAMINE 1.5MG/72HR PATCH TRANSDERM ONE
[2023-01-09] MEDS ORDERED: LACTATED RINGERS 1,000 ML IV ONE (08:20)
[2023-01-09] MEDS ORDERED: PROPOFOL 10 MG/ML 20 ML VIAL IV ONE (08:42)
[2023-01-09] MEDS ORDERED: LIDOCAINE 1% INJ 10MG/ML (20 ML MDV) ONE (08:42)
[2023-01-09 08:49] VITALS: TEMP 97.8
--- NOTE | 2023-01-09 08:50 | P.PCN ---
Date of Procedure: 01/09/23 Procedure(s) Performed: BRIEF HISTORY: Patient is a 62-year-old, pleasant, white female scheduled for an upper endoscopy as a part of evaluation of long-standing history of GERD.. PROCEDURE PERFORMED: Esophagogastroduodenoscopy with biopsy. PREOPERATIVE DIAGNOSIS: Long-standing history of GERD. IV sedation per anesthesia. PROCEDURE: After informed consent was obtained, the patient was brought into the endoscopy unit. IV sedation was administered by Anesthesia under continuous monitoring. Initially the Olympus GIF-140 video endoscope was inserted into the mouth. Esophagus intubated without any difficulty. It was gradually advanced into the stomach and duodenum and carefully examined. The bulb and the second part of the duodenum appeared normal. The scope at this time was withdrawn to the stomach, adequately insufflated with air, and upon careful examination, mucosa of the antrum, had mild gastritis and biopsies were done from this area. Mucosa of the body, cardia and the fundus appeared normal. The scope was then withdrawn into the esophagus. Small hiatal hernia noted. The GE junction was located at 39 cm from the incisors. Superficial erosion noted in the distal esophagus consistent with LA grade a reflux esophagitis. Rest of esophagus appeared normal and the patient tolerated the procedure well. IMPRESSION: 1. Mild antral gastritis. 2. Superficial erosion at the GE junction consistent with LA grade a reflux esophagitis 3. Mall hiatal hernia. RECOMMENDATIONS: The findings of this examination were discussed with the patient is well as a family.. Follow with the biopsy results. She was advised to continue with Pepcid 20 mg daily and follow antireflux measures.
[2023-01-09 09:13] VITALS: RESP 16
[2023-01-09 09:35] VITALS: BP 131/87; PULSE 62
== END 2023-01-09 09:31 | disposition home or self-care (01) ==
LOC: ORWHC2ENDO 08:06
PROVIDERS: ATTEND Internal Medicine Gastroenterology
DX: K21.9 Gastro-esophageal reflux disease without esophagitis (principal); K29.50 Unspecified chronic gastritis without bleeding; K44.9 Diaphragmatic hernia without obstruction or gangrene
CPT/HCPCS: 88305; 43239; J2001; J2704